=== PATIENT | female | born 1985 | race Two or more races ===

== ENCOUNTER 2017-06-03 12:30 | Emergency (ER) | payer OTHER ==
[2017-06-03 12:40] VITALS: BMI 23.4
--- NOTE | 2017-06-03 14:30 | PDOC ---
Attending Attestation - Resident Resident Name: Shakeel Cody - HPI HPI: 06/03/17 15:42 Pt presents to the ED complaining of three episodes of vomiting today. Patient is 11 weeks , and has been complaining of nausea for the last 5 weeks, but has only rarely vomited. Denies fevers, but complains of mild epigastric abdominal pain. Denies urinary complaints or vaginal bleeding. - Physicial Exam PE: 06/03/17 15:52 Agree with resident exam. Abdomen is non tender on my exam. Patient is well appearing in no acute distress. - Medical Decision Making 06/03/17 15:53 Pt presents to the ED complaining of nausea and vomiting consistent with mild hyperemesis. Will treat with IV fluids and nausea control and reassess. Will check urine for infection and ketones. Will do bedside US.
[2017-06-03] MEDS ORDERED: ONDANSETRON 4 MG/2 ML VIAL IVPUSH ONE (14:37)
[2017-06-03] MEDS ORDERED: SODIUM CHLORIDE 1,000 ML IV STA (14:50)
[2017-06-03] MEDS ORDERED: ONDANSETRON 4 MG/2 ML VIAL ONE (14:51)
[2017-06-03 15:07] LABS: BASO % 0.2 % (0-2.0); EOS % 0.2 % (0-4.5); HEMATOCRIT 37.2 % (32.4-45.2); HEMOGLOBIN 12.8 GM/dL (10.7-15.3); MCH 31.7 pg (25.7-33.7); MCHC 34.5 g/dl (32.0-36.0); MEAN CELL VOLUME 91.9 fl (80-96); MEAN PLT VOLUME 7.6 fl (7.5-11.1); MONO % 4.2 % (3.8-10.2); NEUT % 87.4 % (42.8-82.8); PLATELET COUNT 244 K/MM3 (134-434); RBC 4.05 M/mm3 (3.60-5.2); RDW 13.3 % (11.6-15.6); WHITE BLOOD COUNT 5.6 K/mm3 (4.0-10.0)
[2017-06-03 15:42] LABS: ALBUMIN 3.8 g/dl (3.4-5.0); ANION GAP 12 (8-16); BLOOD UREA NITROGEN 15 mg/dL (7-18); CALCIUM 9.3 mg/dL (8.5-10.1); CHLORIDE 104 mmol/L (98-107); CO2 22 mmol/L (21-32); CREATININE 0.5 mg/dL (0.55-1.02); GLUCOSE,RANDOM 82 mg/dL (74-106); POTASSIUM 4.2 mmol/L (3.5-5.1); SGOT/AST 16 U/L (15-37); SGPT/ALT 34 U/L (12-78); SODIUM 138 mmol/L (136-145)
[2017-06-03 15:44] LABS: ALK PHOS 45 U/L (45-117); BILIRUBIN,TOTAL 0.6 mg/dL (0.2-1.0); TOT PROT 7.4 g/dl (6.4-8.2)
[2017-06-03 16:24] LABS: URINE APPEARANCE CLEAR; URINE BILIRUBIN NEGATIVE (NEGATIVE); URINE BLOOD NEGATIVE (NEGATIVE); URINE COLOR YELLOW; URINE GLUCOSE (UA) NEGATIVE (NEGATIVE); URINE KETONE 2+ (NEGATIVE); URINE LEUK ESTERASE NEGATIVE (NEGATIVE); URINE NITRITE NEGATIVE (NEGATIVE); URINE PROTEIN NEGATIVE (NEGATIVE); URINE UROBILINOGEN NEGATIVE mg/dL (0.2-1.0)
--- NOTE | 2017-06-03 16:28 | PDOC ---
History of Present Illness - General Chief Complaint: Nausea/Vomiting Stated Complaint: VOMITING (11 WKS ) Time Seen by Provider: 06/03/17 14:29 History Source: Patient Exam Limitations: No Limitations - History of Present Illness Initial Comments: 06/03/17 16:16 31F 11-weeks presents to the Ed for multiple episodes of vomiting since last night and this morning. Had nausea throughout the for which she was taking doxylamine/ pyridoxine. Had her last TVUS 2 weeks ago Past History - Past Medical History Allergies/Adverse Reactions: Allergies Allergy/AdvReac Type Severity Reaction Status Date / Time Penicillins Allergy Verified 06/03/17 12:40 sulfamethoxazole Allergy Verified 06/03/17 12:40 [From Bactrim] trimethoprim [From Bactrim] Allergy Verified 06/03/17 12:40 Home Medications: Ambulatory Orders Ondansetron [Zofran -] 4 mg PO TID PRN #14 tablet 06/03/17 COPD: No Other medical history: multiple sclersosis - Immunization History Immunization Up to Date: Yes (FLU 04/29/15) - Suicide/Smoking/Psychosocial Hx Smoking History: Never smoked Have you smoked in the past 12 months: No Information on smoking cessation initiated: No Hx Alcohol Use: No Drug/Substance Use Hx: No Substance Use Type: None Review of Systems - Review of Systems Able to Perform ROS?: Yes Constitutional: Yes: See HPI HEENTM: No: Symptoms Reported Respiratory: No: Symptoms reported Cardiac (ROS): No: Symptoms Reported ABD/GI: Yes: Nausea, Vomiting : No: Symptoms Reported Musculoskeletal: No: Symptoms Reported Integumentary: No: Symptoms Reported Neurological: No: Symptoms reported *Physical Exam - Vital Signs Last Vital Signs Temp Pulse Resp BP Pulse Ox 98.3 F 92 H 18 124/84 100 06/03/17 12:36 06/03/17 12:36 06/03/17 12:36 06/03/17 12:36 06/03/17 12:36 - Physical Exam General Appearance: Yes: Nourished, Appropriately Dressed. No: Apparent Distress HEENT: positive: EOMI, IRAM, Normal ENT Inspection Neck: positive: Trachea midline, Normal Thyroid. negative: Tender Respiratory/Chest: positive: Lungs Clear, Normal Breath Sounds. negative: Chest Tender Cardiovascular: positive: Regular Rhythm, Regular Rate, S1, S2 Gastrointestinal/Abdominal: positive: Normal Bowel Sounds, Flat, Soft. negative : Tender Musculoskeletal: positive: Normal Inspection Extremity: positive: Normal Capillary Refill, Normal Inspection Neurologic: positive: Fully Oriented, Alert, Normal Mood/Affect, Normal Response , Motor Strength 10/05 ED Treatment Course - LABORATORY CBC & Chemistry Diagram: 06/03/17 15:00 06/03/17 15:00 - ADDITIONAL ORDERS Additional order review: Laboratory Results 06/03/17 06/03/17 15:00 15:00 Sodium 138 Potassium 4.2 Chloride 104 Carbon Dioxide 22 Anion Gap 12 BUN 15 Creatinine 0.5 L D Creat Clearance w eGFR > 60 Random Glucose 82 Calcium 9.3 Total Bilirubin 0.6 D AST 16 D ALT 34 Alkaline Phosphatase 45 Total Protein 7.4 Albumin 3.8 Acetone, Qual Negative L 06/03/17 15:00 RBC 4.05 MCV 91.9 MCHC 34.5 RDW 13.3 MPV 7.6 Neutrophils % 87.4 H D Lymphocytes % 8.0 D Monocytes % 4.2 Eosinophils % 0.2 D Basophils % 0.2 - Medications Given in the ED: ED Medications Discontinued Medications Generic Name Dose Route Start Last Admin Trade Name Freq PRN Reason Stop Dose Admin Sodium Chloride 1,000 mls @ 1,000 mls/hr 06/03/17 14:50 06/03/17 15:04 Normal Saline - IV 06/03/17 15:49 1,000 mls/hr ASDIR STA Administration Ondansetron HCl 4 mg 06/03/17 14:37 06/03/17 15:04 Zofran Injection IVPUSH 06/03/17 14:38 4 mg ONCE ONE Administration Medical Decision Making - Medical Decision Making 06/03/17 16:29 labs sent for evaluation of dehydration in the context of vomiting during Bedside ultrasound showered normal intrauterine with HR of 168 bpm 06/03/17 16:31 Zofran for vomiting. *DC/Admit/Observation/Transfer Diagnosis at time of Disposition: Vomiting affecting - Discharge Dispostion Disposition: HOME Condition at time of disposition: Improved Admit: No - Prescriptions Prescriptions: Ondansetron [Zofran -] 4 mg PO TID PRN #14 tablet PRN Reason: Nausea And/Or Vomiting - Referrals - Patient Instructions Printed Discharge Instructions: Diet, DI for Hyperemesis Gravidarum, DI for Vomiting -- Adult Additional Instructions: Please follow up with your OBGYN within the next 3-4 days Come back to the ER for any new, persisting, worsening or concerning symptom. - Post Discharge Activity
[2017-06-03 16:46] VITALS: BP 122/76; PULSE 87; TEMP 98.5
== END 2017-06-03 18:04 | disposition home or self-care (01) ==
LOC: JER 12:30
PROC: 3E0337Z Introduction of Electrolytic and Water Balance Substance into Peripheral Vein, Percutaneous Approach (ICD-10-PCS; principal; 2017-06-03)
PROC: 3E033GC Introduction of Other Therapeutic Substance into Peripheral Vein, Percutaneous Approach (ICD-10-PCS; 2017-06-03)
DX: O26.891 Other specified pregnancy related conditions, first trimester (principal); O21.1 Hyperemesis gravidarum with metabolic disturbance; Z3A.11 11 weeks gestation of pregnancy
CPT/HCPCS: 36415; 80053; 81003; 82009; 85025; 99283-25

== ENCOUNTER 2017-12-20 16:10 | Inpatient (IN) | payer BC ==
[~2017-12-20 16:10] MED LIST: DEXTROSE 5%-LACTATED RINGERS 1,000 ML IV SCH
[2017-12-20 16:48] VITALS: BMI 27.7
[2017-12-20] MEDS ORDERED: DINOPROSTONE 10 MG VAGINAL SUPPOSITORY VG ONE (17:15)
--- NOTE | 2017-12-20 17:47 | HP ---
Past Medical History - Primary Care Physician PCP:: Giorgio Miller - Admission Chief Complaint: 32yo P0 with at EGA 40w5d admitted for labor induction due to post term and variable decels on NST in-office History of Present Illness: Past Hx of MS- not on meds at this time Vag GBS (-) Late transfer of PNC History Source: Patient, Medical Record Limitations to Obtaining History: No Limitations - Past Medical History MANAGER CARGO: Yes: Multiple Sclerosis Cardiovascular: No: AFIB, Aneurysm, Aortic Insufficiency, Aortic Stenosis, CAD, CHF, Deep Vein Thrombosis, HTN, Hyperlipdemia, AL, Mitral Insufficiency, Mitral Stenosis, Murmur, Pulmonary Hypertension, Other Pulmonary: No: Asthma, Bronchitis, Cancer, COPD, O2 Dependent, Pneumonia, Previously Intubated, Pulmonary Embolus, Pulmonary Fibrosis, Sleep Apnea, Other Gastrointestinal: No: Ascites, Cancer, Constipation, Crohn's Disease, Diverticulitis, Diverticulosis, Esophageal Varices, Gastritis, GERD, GI Bleed, Hemorrhoids, Hiatal Hernia, Inflamatory Bowel Disease, Irritable Bowel Disease, Pancreatitis, Peptic Ulcer Disease, Ulcerative Colitis, Other Hepatobiliary: No: Cirrhosis, Cholelithiasis, Cholecystitis, Choledocholithiasis , Hepatitis A, Hepatitis B, Hepatitis C, Other Renal/: No: Renal Failure, Renal Inusuff, BPH, Cancer, Hematuria, Hemodialysis , Neurogenic Bladder, Renal Calculi, UTI, Other Reproductive: No: Ectopic , Endometriosis, Fibroids, PID, Polycystic Ovary Syndrome, Postmenopausal, Other ...: 2 ...Para: 0 ...Term: 0 ...: 0 ...Spon : 0 ...Induced : 0 ...Multiple Gestation: 0 ...LMP: 03/14/17 ... Weeks Gestation by Dates: 40.5 ...EDC by Dates: 12/15/17 ...EDC by Sono: 12/16/17 Heme/Onc: Yes: Anemia Infectious Disease: No: AIDS, C-Diff, Herpes Zoster, HIV, MRSA, STD's, Tuberculosis, VREF, Other Psych: No: Addictions, Anxiety, Bipolar, Depression, Panic, Psychosis, Schizophrenia, Other Musculoskeletal: No: Bursitis, Chronic low back pain, Hemiparesis, Hemiplegia, Osteoarthritis, Paraplegia, Other Rheumatology: No: Fibromyalgia, Gout, Lupus, Rheumatoid Arthritis, Sarcoidosis, Vasculitis, Other ENT: Yes: Allergic Rhinitis Endocrine: No: Dallas's Disease, Glenwood's Disease, Diabetes Insipidus, Diabetes Mellitus, Hyperparathyroidism, Hyperthyroidism, Hypothyroidism, Osteopenia, SIADH, Other Dermatology: No: Basal Cell, Cellulitis, Eczema, Melanoma, Psoriasis, Squamous Cell, Other - Past Surgical History Past Surgical History: Yes: None Hx Myomectomy: No Hx Transabdominal Cerclage: No - Smoking History Smoking history: Never smoked Have you smoked in the past 12 months: No - Alcohol/Substance Use Hx Alcohol Use: No History of Substance Use: reports: None - Social History Usual Living Arrangement: Yes: With Spouse ADL: Independent History of Recent Travel: No Home Medications - Allergies Allergies/Adverse Reactions: Allergies Allergy/AdvReac Type Severity Reaction Status Date / Time Penicillins Allergy Severe Rash Verified 12/20/17 16:30 sulfamethoxazole Allergy Severe Rash Verified 12/20/17 16:30 [From Bactrim] trimethoprim [From Bactrim] Allergy Severe Rash Verified 12/20/17 16:30 - Home Medications Home Medications: Ambulatory Orders Ondansetron [Zofran -] 4 mg PO TID PRN #14 tablet 06/03/17 Family Disease History - Family Disease History Family History: Unremarkable Review of Systems - Review of Systems Constitutional: reports: No Symptoms Eyes: reports: No Symptoms HENT: reports: No Symptoms Neck: reports: No Symptoms Cardiovascular: reports: No Symptoms Respiratory: reports: No Symptoms Gastrointestinal: reports: No Symptoms Genitourinary: reports: No Symptoms Breasts: reports: No Symptoms Reported Musculoskeletal: reports: No Symptoms Integumentary: reports: No Symptoms Neurological: reports: No Symptoms Endocrine: reports: No Symptoms Hematology/Lymphatic: reports: No Symptoms Psychiatric: reports: No Symptoms Pain Intensity: 0 Physical Exam - Maternity Vital Signs: Vital Signs Temperature 98.5 F 12/20/17 16:20 Pulse Rate 92 H 12/20/17 16:20 Respiratory Rate 20 12/20/17 16:20 Blood Pressure 116/76 12/20/17 16:20 O2 Sat by Pulse Oximetry (%) Constitutional: Yes: Well Nourished, No Distress, Calm Eyes: Yes: WNL, Conjunctiva Clear HENT: Yes: WNL, Atraumatic, Normocephalic Neck: Yes: WNL, Supple, Trachea Midline Cardiovascular: Yes: WNL, Regular Rate and Rhythm Lungs: Clear to auscultation, Normal air movement - Abdominal Exam/OB Fundal Height: 39 Number of Fetuses: Single Presentation: Vertex Contractions: Yes Regularity: Irregular Intensity: Unaware Monitor Mode: External Heart Rate (range): 130 Heart Rate Location: Midline Category: I Accelerations: Non-Uniform Decelerations: None - Vaginal Exam/OB Vaginal Bleediing: No Speculum Exam: No Dilatation (cm): 0 Effacement (%): 0 Amniotic Membrane Status: Intact Presentation: Vertex/Position Station: -3 - Physical Exam Musculoskeletal: Yes: WNL Extremities: Yes: WNL Edema: No Integumentary: Yes: WNL Deep Tendon Reflex Grade: Normal +2 ...Motor Strength: WNL Psychiatric: Yes: WNL, Alert, Oriented Hemorrhage Risk Assessment - Risk Factors Medium Risk Factors: Yes: None High Risk Factors: Yes: None Risk Score: 1 Risk Level: Medium Risk Imaging - Results Ultrasound: Report Reviewed Assessment/Plan 32yo P0 with at EGA 40w5d admitted for labor induction due to post term and variable decels on NST in-office. The FHT is now Category I and the BPP earlier today was 10/10. Pt is not in labor. Adequate gynecoid pelvimetry on exam. We had long discussion re: risks, benefits, and alternatives of labor induction. I explained the options of expectant management awaiting spontaneous labor, induction of labor, and elective section. The risks of uterine tachysystole, distress, uterine rupture, need for emergency C/S, hemorrhage, infection, scarring, etc. were discussed. We also discussed the risks of meconium aspiration, shoulder dystocia , and anesthesia options. The pt requested to proceed with induction. We discussed the alternative methods of induction with Cervidil, Cytotec, Folley ballon, and pitocin. The pt prefers Cervidil followed by pitocin, if needed.
[2017-12-20 17:48] LABS: BASO % 0.6 % (0-2.0); EOS % 0.6 % (0-4.5); HEMATOCRIT 30.1 % (32.4-45.2); HEMOGLOBIN 10.3 GM/dL (10.7-15.3); LYMPH % 24.8 % (8-40); MCH 32.7 pg (25.7-33.7); MCHC 34.4 g/dl (32.0-36.0); MEAN CELL VOLUME 95.2 fl (80-96); MEAN PLT VOLUME 9.9 fl (7.5-11.1); MONO % 10.6 % (3.8-10.2); NEUT % 63.4 % (42.8-82.8); PLATELET COUNT 221 K/MM3 (134-434); RBC 3.16 M/mm3 (3.60-5.2); RDW 13.7 % (11.6-15.6); WHITE BLOOD COUNT 6.4 K/mm3 (4.0-10.0)
[2017-12-20] MEDS ORDERED: TUBERCULIN PPD 5 TU/0.1ML SYRINGE (IN PATIENT USE ONLY) ID ONE (18:00)
[2017-12-20 18:04] LABS: INR 0.96 (0.82-1.09); PROTHROMBIN TIME (PATIENT) 10.9 SEC (9.7-13.0)
[2017-12-20 18:07] LABS: ACTIVATED PTT 25.4 SECONDS (25.2-36.5)
[2017-12-20 18:15] LABS: ANION GAP 10 (8-16); BLOOD UREA NITROGEN 23 mg/dL (7-18); CALCIUM 8.9 mg/dL (8.5-10.1); CHLORIDE 109 mmol/L (98-107); CO2 21 mmol/L (21-32); CREATININE 0.8 mg/dL (0.55-1.02); GLUCOSE,RANDOM 89 mg/dL (74-106); POTASSIUM 3.9 mmol/L (3.5-5.1); SODIUM 140 mmol/L (136-145)
[2017-12-20] MEDS: DEXTROSE 5%-LACTATED RINGERS 1,000 ML IV SCH (21:15)
[2017-12-21] MEDS ORDERED: OXYTOCIN 30 UNITS in 0.9% NS 30 UNIT/500 ML INFUS.BAG IVPB ONE (11:15)
--- NOTE | 2017-12-21 11:22 | PN ---
Ante-Partal Exam - Subjective Subjective: No complaints. Pt had contractions earlier but now they subsided. Vital Signs: Vital Signs Temperature 98.5 F 12/21/17 10:00 Pulse Rate 76 12/21/17 11:00 Respiratory Rate 18 12/21/17 11:00 Blood Pressure 129/86 12/21/17 11:00 O2 Sat by Pulse Oximetry (%) Bleeding: No Headache: No Visual changes: No Right upper quadrant pain: No Pain (scale 1-10): 0 - Contractions Contractions: No Regularity: Irritability Intensity: Unaware Monitor Mode: External - Exam during Labor Heart Rate: 130 Variability: Moderate Heart Rate Location: Midline Category: I Monitor Accelerations: Present Monitor Decelerations: None Exam: Vaginal Dilatation (cm): 0 Effacement (%): 20 Amniotic Membrane Status: Intact Presentation: Vertex Station: -3 - Intrapartum Hemorrhage Risk Medium Risk Factors: None High Risk Factors: None Risk Score: 0 Risk Level: Low Risk - Assessment/Plan Assessment/Plan: 32yo P0 with at EGA 40w6d admitted for labor induction. Fetus with Category I tracing Labor- w/o cervical change. Pt declined to be d/c home and awaiting spontaneous labor. She prefers to continue indx. Risks, benefits, alternatives of pitocin explained. Plan to start pitocin.
[2017-12-21] MEDS ORDERED: OXYTOCIN 30 UNITS in 0.9% NS 30 UNIT/500 ML INFUS.BAG IVPB SCH (11:30)
[2017-12-21 12:01] LABS: RPR NONREACTIVE (NONREACTIVE)
--- NOTE | 2017-12-21 17:16 | PN ---
Ante-Partal Exam - Subjective Subjective: No complaints, contractions feel mild and light. Vital Signs: Vital Signs Temperature 98.4 F 12/21/17 12:00 Pulse Rate 73 12/21/17 16:56 Respiratory Rate 18 12/21/17 16:56 Blood Pressure 123/84 12/21/17 16:56 O2 Sat by Pulse Oximetry (%) Bleeding: No Headache: No Visual changes: No Right upper quadrant pain: No Pain (scale 1-10): 1 - Contractions Contractions: Yes Regularity: Irregular Intensity: Mild Monitor Mode: External - Exam during Labor Heart Rate: 120 Variability: Moderate Heart Rate Location: Midline Category: I Monitor Accelerations: Present Monitor Decelerations: None Exam: Vaginal Dilatation (cm): 1 Effacement (%): 50 Amniotic Membrane Status: Intact Presentation: Vertex Station: -3 Remarks: Adequate pelvimetry - Intrapartum Hemorrhage Risk Medium Risk Factors: None High Risk Factors: None Risk Score: 0 Risk Level: Low Risk - Assessment/Plan Assessment/Plan: 32yo P0 with at 40w6d undergoing labor indx. Fetus with Category I tracing. Labor in latent phase. Plan to continue pitocin. Monitor labor progress.
[2017-12-21] MEDS ORDERED: FENTANYL/BUPIVACAINE/NS/PF - PCEA - 50 ML DISP.SYRIN EP ONE (23:17)
[2017-12-21] MEDS ORDERED: NALOXONE HCL 0.4 MG/ML VIAL IVPUSH PRN (23:27)
[2017-12-21] MEDS ORDERED: LIDO 2%/EPI 1:200000 PRESRVFRE (20 ML SDVIAL) ONE (23:29)
[2017-12-21] MEDS ORDERED: BUPIVACAINE HCL/PF 0.25% (2.5MG/ML) 10 ML VIAL ONE (23:29)
[2017-12-21] MEDS ORDERED: FENTANYL/BUPIVACAINE/NS/PF - PCEA - 50 ML DISP.SYRIN EP SCH (23:30)
[2017-12-21] MEDS: ELECTROLYTE-148 SOLN 1,000 ML IV SCH (23:30)
[2017-12-22] MEDS: DEXTROSE 5%-LACTATED RINGERS 1,000 ML IV SCH (00:37)
[2017-12-22] MEDS: ELECTROLYTE-148 SOLN 1,000 ML IV SCH (01:35)
--- NOTE | 2017-12-22 02:23 | PN ---
Ante-Partal Exam - Subjective Subjective: No complaints, s/p epidural placed. Vital Signs: Vital Signs Temperature 98.4 F 12/22/17 02:00 Pulse Rate 66 12/22/17 01:45 Respiratory Rate 18 12/22/17 01:45 Blood Pressure 103/56 12/22/17 01:45 O2 Sat by Pulse Oximetry (%) 100 12/22/17 01:45 Bleeding: No Headache: No Visual changes: No Right upper quadrant pain: No Pain (scale 1-10): 0 - Contractions Contractions: Yes Regularity: Regular (q 3-4min) Intensity: Moderate Monitor Mode: External - Exam during Labor Heart Rate: 130 Variability: Moderate Heart Rate Location: Midline Category: II Monitor Accelerations: Present Monitor Decelerations: Variable (occasional variable decels, resolved with position change) Exam: Vaginal Dilatation (cm): 2 Effacement (%): 80 Amniotic Membrane Status: Ruptured (forebag ruptured) Amniotic Fluid: Clear Presentation: Vertex Station: -3 - Intrapartum Hemorrhage Risk Medium Risk Factors: None High Risk Factors: None Risk Score: 0 Risk Level: Low Risk - Assessment/Plan Assessment/Plan: 32yo P0 with at EGA 41 weeks undergoing labor induction. Fetus with Catgory I tracing. Pt has position change, pitocin decreased, oxygen given by mask. Plan to monitor tracing and labor progress.
[2017-12-22] MEDS ORDERED: OXYTOCIN 30 UNITS in 0.9% NS 30 UNIT/500 ML INFUS.BAG IVPB ONE (03:29)
[2017-12-22] MEDS ORDERED: FENTANYL/BUPIVACAINE/NS/PF - PCEA - 50 ML DISP.SYRIN EP ONE (04:27)
[2017-12-22] MEDS ORDERED: LIDOCAINE HCL 1% PRESERVATIVE FREE - 30ML VIAL ONE (05:49)
[2017-12-22] MEDS ORDERED: OXYTOCIN 20 UNITS in 0.9% NS 20 UNIT/1,000 ML INFUS.BAG IV ONE (05:49)
[2017-12-22] MEDS: OXYTOCIN 20 UNITS in 0.9% NS 20 UNIT/1,000 ML INFUS.BAG IV SCH (08:55)
[2017-12-22] MEDS ORDERED: WITCH HAZEL 50% (TUCKS) 40 PAD/JAR PAD TP PRN (08:59)
[2017-12-22] MEDS ORDERED: BISACODYL 10 MG SUPP.RECT RC PRN (08:59)
[2017-12-22] MEDS ORDERED: BENZOCAINE 28 GM HEMORRHOIDAL OINTMENT TP PRN (08:59)
[2017-12-22] MEDS ORDERED: METHYLERGONOVINE MALEATE 0.2 MG/1 ML AMP IM PRN (08:59)
[2017-12-22 09:11] LABS: ARTERIAL BLOOD GAS BASE EXCESS -7.8 meq/l (-2-2)
[2017-12-22 09:12] LABS: VENOUS PC02 41.6 mmHg (38-52); VENOUS PH 7.29 (7.32-7.42); VENOUS PO2 36.6 mmHg (28-48)
--- NOTE | 2017-12-22 09:12 | PN ---
Delivery - Delivery Vaginal Delivery: No Problems, Spontaneous Type of Anesthesia: Local, Epidural Episiotomy/Laceration: Midline EBL (cc): 300 Delivery, Single - Stages of Labor Date 1st Stage Initiatied: 12/21/17 Time 1st Stage Initiated: 23:00 Date 2nd Stage Initiated: 12/22/17 Time 2nd Stage Initiated: 07:00 Date of Delivery: 12/22/17 Time of Delivery: 08:34 Date Placenta Delivered: 12/22/17 Time Placenta Delivered: 08:51 Placenta: Yes: Spontaneous, Normal Configuration - Condition of Manager Sales Training/Residency Coordinator Present: [place]: Tim Mcknight Infant Gender: Female Position: Right, OA Total Hours ROM (Hrs/Mins): 6hr/36min - 1 Minute Total Score: 9 5 Minutes Total Score: 9 - Feeding Plan Initial Plan: Elected not to breastfeed exclusively throughout hospitalization Remarks - Remarks Remarks: Uncomplicated . Nuchal cord x 1.
[2017-12-22 09:13] LABS: ARTERIAL BLOOD GAS PO2 17.8 mmHg (80-100); ARTERIAL BLOOD GAS pH 7.19 (7.35-7.45)
[2017-12-22 09:14] LABS: ARTERIAL BLD GAS O2 SATURATION 24.8 % (90-98.9)
[2017-12-22] MEDS: oxyCODONE HCL 5 MG TABLET PO PRN ×4 (09:40→21:30)
[2017-12-22] MEDS: ACETAMINOPHEN 325 MG TABLET (FP) PO PRN (09:40)
[2017-12-22] MEDS: DOCUSATE SODIUM 100 MG CAPSULE (FP) PO PRN ×2 (10:56→21:29)
[2017-12-22] MEDS: BENZOCAINE 20% 57 GM BOTTLE TP PRN (10:56)
[2017-12-22] MEDS: PRENATAL VITAMINS W/ FOLIC ACID TABLET (FP) PO SCH (10:56)
[2017-12-22] MEDS: IBUPROFEN 600 MG TABLET (FP) PO PRN ×3 (13:38→21:29)
[2017-12-23] MEDS: IBUPROFEN 600 MG TABLET (FP) PO PRN ×4 (06:27→20:42)
[2017-12-23] MEDS: DOCUSATE SODIUM 100 MG CAPSULE (FP) PO PRN ×2 (06:27→14:21)
[2017-12-23] MEDS: oxyCODONE HCL 5 MG TABLET PO PRN ×3 (06:28→20:42)
[2017-12-23 07:26] LABS: BASO % 0.5 % (0-2.0); EOS % 0.7 % (0-4.5); HEMATOCRIT 21.9 % (32.4-45.2); HEMOGLOBIN 7.6 GM/dL (10.7-15.3); LYMPH % 17.2 % (8-40); MCH 33.6 pg (25.7-33.7); MCHC 34.8 g/dl (32.0-36.0); MEAN CELL VOLUME 96.4 fl (80-96); MEAN PLT VOLUME 9.5 fl (7.5-11.1); MONO % 7.5 % (3.8-10.2); NEUT % 74.1 % (42.8-82.8); PLATELET COUNT 161 K/MM3 (134-434); RBC 2.27 M/mm3 (3.60-5.2); WHITE BLOOD COUNT 10.9 K/mm3 (4.0-10.0)
[2017-12-23] MEDS: ACETAMINOPHEN 325 MG TABLET (FP) PO PRN (10:33)
[2017-12-23] MEDS: PRENATAL VITAMINS W/ FOLIC ACID TABLET (FP) PO SCH (10:34)
--- NOTE | 2017-12-23 11:30 | PN ---
Post Progress Note - Subjective Subjective: No complaints, no SOB, no chest pain, no dizziness Post Day: 1 Type of Delivery: Vital Signs: Vital Signs Temperature 98.2 F 12/23/17 06:00 Pulse Rate 79 12/23/17 06:00 Respiratory Rate 20 12/23/17 06:00 Blood Pressure 114/59 12/23/17 06:00 O2 Sat by Pulse Oximetry (%) 100 12/22/17 10:50 Breast Exam: Yes: Soft Uterus: Yes: Fundus Firm, Fundus below umbilicus, Non-tender Abdomen/GI: Yes: Abdomen soft, Passing flatus, Tolerating PO Lochia: Yes: Rubra Lochia, amount: Small Extremities: Yes: Calves non-tender Perineum: Yes: Intact Activity: Ambulating - Labs Labs: CBC WBC 10.9 K/mm3 (4.0-10.0) H 12/23/17 06:30 RBC 2.27 M/mm3 (3.60-5.2) L 12/23/17 06:30 Hgb 7.6 GM/dL (10.7-15.3) L 12/23/17 06:30 Hct 21.9 % (32.4-45.2) L D 12/23/17 06:30 MCV 96.4 fl (80-96) H 12/23/17 06:30 MCH 33.6 pg (25.7-33.7) 12/23/17 06:30 MCHC 34.8 g/dl (32.0-36.0) 12/23/17 06:30 RDW 14.0 % (11.6-15.6) 12/23/17 06:30 Plt Count 161 K/MM3 (134-434) D 12/23/17 06:30 MPV 9.5 fl (7.5-11.1) 12/23/17 06:30 Absolute Neuts (auto) 8.1 # 12/23/17 06:30 Neutrophils % 74.1 % (42.8-82.8) 12/23/17 06:30 Lymphocytes % 17.2 % (8-40) D 12/23/17 06:30 Monocytes % 7.5 % (3.8-10.2) 12/23/17 06:30 Eosinophils % 0.7 % (0-4.5) 12/23/17 06:30 Basophils % 0.5 % (0-2.0) 12/23/17 06:30 Nucleated RBC % 0 % (0-0) 12/23/17 06:30 Assessment/Plan 32yo P1 s/p , doing well stable, afebrile. Asymptomatic for anemia care instructions reviewed. Continue routine care. Ambulation encouraged Discharge instruction reviewed.
--- NOTE | 2017-12-23 11:33 | DS ---
Physical Exam-BUILDING CODE INSPECTOR Vital Signs: Vital Signs Temperature 98.2 F 12/23/17 06:00 Pulse Rate 79 12/23/17 06:00 Respiratory Rate 20 12/23/17 06:00 Blood Pressure 114/59 12/23/17 06:00 O2 Sat by Pulse Oximetry (%) 100 12/22/17 10:50 Constitutional: Yes: Well Nourished, No Distress, Calm Eyes: Yes: WNL, Conjunctiva Clear HENT: Yes: WNL, Atraumatic, Normocephalic Neck: Yes: WNL, Supple, Trachea Midline Cardiovascular: Yes: WNL, Regular Rate and Rhythm Respiratory: Yes: WNL, Regular, CTA Bilaterally Gastrointestinal: Yes: WNL, Normal Bowel Sounds, Soft ...Rectal Exam: Yes: Deferred Renal/: Yes: WNL Internal Exam Deferred: Yes ....Post : Yes: Uterus firm, Uterus non-tender, Slight lochia rubra Breast(s): Yes: WNL Musculoskeletal: Yes: WNL Extremities: Yes: WNL Edema: No Integumentary: Yes: WNL Neurological: Yes: WNL, Alert, Oriented ...Motor Strength: WNL Psychiatric: Yes: WNL, Alert, Oriented Labs: CBC, BMP 12/23/17 06:30 12/20/17 17:00 Delivery - Delivery Vaginal Delivery: No Problems, Spontaneous Type of Anesthesia: Local, Epidural Episiotomy/Laceration: Midline EBL (cc): 300 Delivery, Single - Stages of Labor Date 1st Stage Initiatied: 12/21/17 Time 1st Stage Initiated: 23:00 Date 2nd Stage Initiated: 12/22/17 Time 2nd Stage Initiated: 07:00 Date of Delivery: 12/22/17 Time of Delivery: 08:34 Time Placenta Delivered: 08:51 Placenta: Yes: Spontaneous, Normal Configuration - Condition of Infant Full Stack Net Developer/Candle Making Supervisor Present: [place]: Tim Mcknight Infant Gender: Female Weight: 2.75 kg Position: Right, OA Total Hours ROM (Hrs/Mins): 6hr/36min - 1 Minute Total Score: 9 5 Minutes Total Score: 9 - Feeding Plan Initial Plan: Elected not to breastfeed exclusively throughout hospitalization Discharge Summary Reason For Visit: CERVIDIL INDUCTION Post term Labor indx Procedures: Principal: [facility] Hospital Course: Normal recovery Condition: Good - Instructions Diet, Activity, Other Instructions: Physical activity Resume your normal everyday activity as tolerated no heavy lifting or exercise until seen by your surgeon. You may walk unlimited martine of and climb stairs. You may resume driving the car when you feel safe and comfortable behind the wheel. No sexual activity as instructed. Wound care If you have a bandage, leave it on, and keep dry for 48-72 hours. After that time discard the outer bandage. If they are tapes on the skin under the out of bandage leave them in place. They will peel off in the next 7 to 10 days. Do Not Peel them off. You may shower the day after surgery. If there are tapes present on the skin, you may shower over them. Diet There are no dietary restrictions. Eat healthy, high-fiber foods. Drink 6 to 8 glasses of liquid each day. This will assist in keeping your bowels are regular. Pain management You may take Tylenol or acetaminophen or Ibuprofen (for example, Motrin, Advil etc.) from my pain prescription medication is ordered should be taken as prescribed for moderate to severe pain. Call MD for any of the following: Severe pain not relieved by medication Fever of 101 or higher Excessive bleeding or drainage on dressing Inability to urinate Referrals: Cathy Patino MD [Staff Physician] - Disposition: HOME - Home Medications Comprehensive Discharge Medication List: Ambulatory Orders Ferrous Sulfate [Feosol] 325 mg PO DAILY 12/20/17 Multivitamin [Multiple Vitamins] 1 each PO DAILY 12/20/17 Vit/Iron Fum/Folic AC [ Tablet] 1 each PO DAILY 12/20/17
[2017-12-23] MEDS: OXYTOCIN 20 UNITS in 0.9% NS 20 UNIT/1,000 ML INFUS.BAG IV SCH (11:51)
[2017-12-23] MEDS: ELECTROLYTE-148 SOLN 1,000 ML IV SCH (11:51)
[2017-12-23] MEDS ORDERED: SENNOSIDES/DOCUSATE COMBO (SENNA PLUS) TABLET (UD) PO PRN (22:00)
[2017-12-24] MEDS: IBUPROFEN 600 MG TABLET (FP) PO PRN ×2 (06:05→10:52)
[2017-12-24] MEDS: oxyCODONE HCL 5 MG TABLET PO PRN (06:06)
[2017-12-24] MEDS: BENZOCAINE 20% 57 GM BOTTLE TP PRN (10:48)
[2017-12-24] MEDS: PRENATAL VITAMINS W/ FOLIC ACID TABLET (FP) PO SCH (10:48)
[2017-12-24] MEDS: ACETAMINOPHEN 325 MG TABLET (FP) PO PRN (10:54)
--- NOTE | 2017-12-24 11:07 | PN ---
Post Progress Note - Subjective Subjective: No complains, not dizzy, walking around, no palpitations Post Day: 2 Type of Delivery: Vital Signs: Vital Signs Temperature 98.6 F 12/23/17 21:00 Pulse Rate 81 12/23/17 21:00 Respiratory Rate 20 12/23/17 21:00 Blood Pressure 133/81 12/23/17 21:00 O2 Sat by Pulse Oximetry (%) 100 12/22/17 10:50 Breast Exam: Yes: Soft Uterus: Yes: Fundus Firm, Non-tender Abdomen/GI: Yes: Abdomen soft Lochia: Yes: Rubra Lochia, amount: Small Extremities: Yes: Calves non-tender Perineum: Yes: Laceration (healing well) Activity: Ambulating - Labs Labs: CBC WBC 10.9 K/mm3 (4.0-10.0) H 12/23/17 06:30 RBC 2.27 M/mm3 (3.60-5.2) L 12/23/17 06:30 Hgb 7.6 GM/dL (10.7-15.3) L 12/23/17 06:30 Hct 21.9 % (32.4-45.2) L D 12/23/17 06:30 MCV 96.4 fl (80-96) H 12/23/17 06:30 MCH 33.6 pg (25.7-33.7) 12/23/17 06:30 MCHC 34.8 g/dl (32.0-36.0) 12/23/17 06:30 RDW 14.0 % (11.6-15.6) 12/23/17 06:30 Plt Count 161 K/MM3 (134-434) D 12/23/17 06:30 MPV 9.5 fl (7.5-11.1) 12/23/17 06:30 Absolute Neuts (auto) 8.1 # 12/23/17 06:30 Neutrophils % 74.1 % (42.8-82.8) 12/23/17 06:30 Lymphocytes % 17.2 % (8-40) D 12/23/17 06:30 Monocytes % 7.5 % (3.8-10.2) 12/23/17 06:30 Eosinophils % 0.7 % (0-4.5) 12/23/17 06:30 Basophils % 0.5 % (0-2.0) 12/23/17 06:30 Nucleated RBC % 0 % (0-0) 12/23/17 06:30 Assessment/Plan 32yo P1 s/p Doing well, Afebrile H/H low, but she is asymptomatic Instructed to continue PNV and Fe supplement and eat meat products NPV x 6 wks RTO 4-6 wks D/C home
[2017-12-24 12:36] VITALS: BP 133/88; PULSE 76; TEMP 98
== END 2017-12-24 12:15 | disposition home or self-care (01) | DRG 775 ==
LOC: JLDR 16:10 → J3W 12-22 10:50
PROVIDERS: ADMIT Obstetrics & Gynecology; ATTEND Obstetrics & Gynecology
PROC: 0W8NXZZ Division of Female Perineum, External Approach (ICD-10-PCS; principal; 2017-12-22)
PROC: 10E0XZZ Delivery of Products of Conception, External Approach (ICD-10-PCS; 2017-12-22)
DX: O48.0 Post-term pregnancy (principal); O99.02 Anemia complicating childbirth; O69.81X0 Labor and delivery complicated by cord around neck, without compression, not applicable or unspecified; Z37.0 Single live birth; Z3A.40 40 weeks gestation of pregnancy
CPT/HCPCS: 36415; 36600; 59409; 80048; 82803; 85025; 85610; 85730; 86593; 86850; 86900; 86901; 87389

== ENCOUNTER 2022-09-01 14:54 | Emergency (ER) | payer BC, OTHER ==
[2022-09-01 15:36] VITALS: BP 143/76; RESP 18; BMI 25.4
[2022-09-01] MEDS ORDERED: ONDANSETRON 4 MG/2 ML VIAL IVPUSH ONE (17:10)
[2022-09-01] MEDS ORDERED: SODIUM CHLORIDE 0.9% 500 ML INFUS.BAG IV ONE (17:10)
[2022-09-01] MEDS ORDERED: ONDANSETRON 4 MG/2 ML VIAL ONE (17:40)
[2022-09-01 17:49] LABS: HEMATOCRIT 35.9 % (32.4-45.2); HEMOGLOBIN 12.2 GM/dL (10.7-15.3); LYMPH % 25.2 % (8-40); MCH 30.5 pg (25.7-33.7); MEAN CELL VOLUME 89.8 fl (80-96); MEAN PLT VOLUME 8.6 fl (7.5-11.1); MONO % 73.5 % (3.8-10.2); NEUT % 1.3 % (42.8-82.8); PLATELET COUNT 388 10^3/uL (134-434); RDW 13.5 % (11.6-15.6); WHITE BLOOD COUNT 2.9 K/mm3 (4.0-10.0)
[2022-09-01] MEDS ORDERED: DEXAMETHASONE SOD PHOSPHATE 10 MG/1 ML VIAL IVPUSH ONE (17:57)
[2022-09-01] MEDS ORDERED: DEXAMETHASONE SOD PHOSPHATE 10 MG/1 ML VIAL ONE (18:02)
[2022-09-01 18:07] LABS: CALCIUM 8.9 mg/dL (8.5-10.1)
[2022-09-01 18:08] LABS: ALBUMIN 3.4 g/dl (3.4-5.0); BLOOD UREA NITROGEN 15.8 mg/dL (7-18)
[2022-09-01 18:11] LABS: CREATININE 1.9 mg/dL (0.55-1.3)
[2022-09-01 18:12] LABS: BILIRUBIN,TOTAL 0.5 mg/dL (0.2-1)
[2022-09-01] MEDS ORDERED: ACETAMINOPHEN 500 MG TABLET (FP) PO ONE (18:50)
[2022-09-01] MEDS ORDERED: IBUPROFEN 600 MG TABLET (FP) PO ONE ×2 (18:50→19:33)
[2022-09-01] MEDS ORDERED: ACETAMINOPHEN 500 MG TABLET (FP) ONE (19:01)
[2022-09-01 20:06] VITALS: PULSE 88; TEMP 99.8
[2022-09-01 20:10] LABS: ANISOCYTOSIS 1+; MACROCYTOSIS 0
== END 2022-09-01 20:06 | disposition home or self-care (01) ==
LOC: JERFT 14:54
PROC: 3E033GC Introduction of Other Therapeutic Substance into Peripheral Vein, Percutaneous Approach (ICD-10-PCS; principal; 2022-09-01)
PROC: 3E0333Z Introduction of Anti-inflammatory into Peripheral Vein, Percutaneous Approach (ICD-10-PCS; 2022-09-01)
PROC: 3E033GC Introduction of Other Therapeutic Substance into Peripheral Vein, Percutaneous Approach (ICD-10-PCS; 2022-09-01)
DX: J18.9 Pneumonia, unspecified organism (principal); R50.9 Fever, unspecified
CPT/HCPCS: 36415; 71046-TC-FY; 80053; 85025; 99284-25; J1100

== ENCOUNTER 2022-09-03 07:52 | Emergency (ER) | payer OTHER ==
[2022-09-03 08:22] VITALS: BMI 25.4
[2022-09-03] MEDS ORDERED: guaiFENesin 200 MG/10 ML 10 ML UNIT-DOSE CUPS PO ONE (08:36)
[2022-09-03] MEDS ORDERED: SODIUM CHLORIDE 0.9% 1000 ML INFUS.BAG IV ONE (08:36)
[2022-09-03] MEDS ORDERED: ALBUTEROL SO4 2.5/IPRATROPIUM 0.5 INH SOL 3 ML VIAL.NEB. NEB ONE ×2 (08:52→09:08)
[2022-09-03] MEDS ORDERED: ONDANSETRON 4 MG/2 ML VIAL ONE (09:08)
[2022-09-03] MEDS ORDERED: guaiFENesin 200 MG/10 ML 10 ML UNIT-DOSE CUPS ONE (09:13)
[2022-09-03 09:20] LABS: HEMATOCRIT 32.4 % (32.4-45.2); MCH 29.7 pg (25.7-33.7); MEAN CELL VOLUME 87.6 fl (80-96); MEAN PLT VOLUME 8.1 fl (7.5-11.1); PLATELET COUNT 478 10^3/uL (134-434); RDW 13.9 % (11.6-15.6); WHITE BLOOD COUNT 11.1 K/mm3 (4.0-10.0)
[2022-09-03 09:42] LABS: CALCIUM 9.3 mg/dL (8.5-10.1)
[2022-09-03 09:43] LABS: BLOOD UREA NITROGEN 22.8 mg/dL (7-18)
[2022-09-03 09:46] LABS: CREATININE 0.8 mg/dL (0.55-1.3)
[2022-09-03 09:48] LABS: BILIRUBIN,TOTAL 0.5 mg/dL (0.2-1); TOT PROT 6.4 g/dl (6.4-8.2)
[2022-09-03 09:55] LABS: ANISOCYTOSIS 0; HELMET CELLS 0; HOWELL-JOLLY BODIES 0; MACROCYTOSIS 0; OVALOCYTE 0; ROULEAU 0; SICKELED CELLS 0; TARGET CELLS 0; TEAR DROP CELLS 0; TOXIC GRANULATION 0
[2022-09-03 12:27] VITALS: BP 120/80; PULSE 94; RESP 16; TEMP 98
== END 2022-09-03 13:14 | disposition home or self-care (01) ==
LOC: JER 07:52
PROC: 3E0F7GC Introduction of Other Therapeutic Substance into Respiratory Tract, Via Natural or Artificial Opening (ICD-10-PCS; principal; 2022-09-03)
DX: J18.9 Pneumonia, unspecified organism (principal); Z20.822 Contact with and (suspected) exposure to COVID-19
CPT/HCPCS: 0241U-QW; 36415; 71046-TC-FY; 80053; 83605; 84702; 84703; 85025; 87040; 99284-25

== ENCOUNTER 2023-11-04 03:52 | Day surgery (SDC) | payer OTHER ==
[2023-10-25 13:06] VITALS: BMI 24.7
[2023-11-04 08:09] VITALS: BP 127/83; PULSE 88; RESP 20; TEMP 99.6
== END 2023-11-04 09:41 | disposition home or self-care (01) ==
LOC: JASU-SURG 03:52
PROVIDERS: ATTEND Obstetrics & Gynecology
DX: Z53.8 Procedure and treatment not carried out for other reasons (principal)
CPT/HCPCS: 81025

== ENCOUNTER 2023-11-11 04:44 | Day surgery (SDC) | payer OTHER ==
[2023-11-04 12:18] VITALS: BMI 24.7
[2023-11-11] MEDS ORDERED: ONDANSETRON 4 MG/2 ML VIAL IVPUSH PRN (07:34)
[2023-11-11] MEDS ORDERED: PROMETHAZINE HCL 25 MG/1 ML VIAL IVPB PRN (07:34)
[2023-11-11] MEDS ORDERED: oxyCODONE HCL 5 MG TABLET PO PRN (07:34)
[2023-11-11] MEDS ORDERED: LACTATED RINGERS SOLUTION 1,000 ML IV SCH (07:45)
[2023-11-11] MEDS ORDERED: MIDAZOLAM HCL 2 MG/2 ML SINGLE DOSE VIAL ONE (08:07)
[2023-11-11] MEDS ORDERED: KETOROLAC TROMETHAMINE 30 MG/1 ML VIAL ONE (08:07)
[2023-11-11] MEDS ORDERED: DEXAMETHASONE SOD PHOSPHATE 4 MG/1 ML VIAL ONE (08:07)
[2023-11-11] MEDS ORDERED: LIDOCAINE HCL/PF 2% SDV 5ML VIAL ONE (08:07)
[2023-11-11] MEDS ORDERED: PROPOFOL 20 ML ONE (08:07)
[2023-11-11] MEDS ORDERED: FENTANYL CITRATE/PF 50 MCG/ML VIAL ONE (08:07)
[2023-11-11] MEDS ORDERED: ACETAMINOPHEN 325 MG TABLET (FP) PO PRN (08:11)
[2023-11-11] MEDS ORDERED: ACETAMINOPHEN INJECTION 100 ML IVPB ONE (09:21)
[2023-11-11] MEDS: ACETAMINOPHEN 1000 MG/100 ML BAG IVPB PRN (09:23)
[2023-11-11 10:14] VITALS: RESP 18
[2023-11-11] MEDS ORDERED: IBUPROFEN 400 MG TABLET (FP) PO ONE (10:33)
[2023-11-11] MEDS: IBUPROFEN 400 MG TABLET (FP) PO PRN (10:35)
[2023-11-11 10:48] VITALS: BP 110/68; PULSE 58; TEMP 98.6
== END 2023-11-11 10:50 | disposition home or self-care (01) ==
LOC: JASU-SURG 04:44
PROVIDERS: ATTEND Obstetrics & Gynecology
PROC: 0UDB8ZZ Extraction of Endometrium, Via Natural or Artificial Opening Endoscopic (ICD-10-PCS; principal; 2023-11-11 08:00)
DX: N92.0 Excessive and frequent menstruation with regular cycle (principal); N93.9 Abnormal uterine and vaginal bleeding, unspecified
CPT/HCPCS: 81025; 88305-TC; 94760; J0131